=== PATIENT | female | born 1980 | race Caucasian/White ===

== ENCOUNTER 2019-07-27 12:23 | Emergency (ER) | payer MEDICAID ==
[2019-07-27] MEDS ORDERED: Sodium Chloride 0.9% 10 ML Syringe FLUSH PRN (12:50)
--- NOTE | 2019-07-27 12:59 | EDM.PDOC ---
ED HPI GENERAL MEDICAL PROBLEM - General Chief Complaint: Neuro Symptoms/Deficits Stated Complaint: [facility] Time Seen by Provider: 07/27/19 12:34 Source of Information: Reports: Patient, RN Notes Reviewed - History of Present Illness INITIAL COMMENTS - FREE TEXT/NARRATIVE: 39 yr old female has been brought here by [facility] with sx of L facial droop, numbness of her distal R tongue for 1 1/2 days, L facial and LUE, L proximal LLE paresthesias since around midnight early this am about 12 1/2 hrs ago. Last known completely normal last Sunday evening about 40 hours ago. There has been no speech difficulty, no visual difficulty, no focal weakness, clumsiness or difficulty walking. She has had some mild nonspecific dizziness, did not have Cohn initially but today does have mild headache. This was called stroke alert shortly after patient arrival. She has no hx of Htn, diabetes or other known medical problems. She does not take any medications on a regular basis. Left Arm Pain Score (Numeric/FACES): 4 Anterior Head Pain Score (Numeric/FACES): 5 - Related Data Allergies Allergy/AdvReac Type Severity Reaction Status Date / Time blueberry Allergy Other Verified 01/15/18 18:17 antibiotic Allergy Other Uncoded 01/15/18 18:17 maple Allergy Other Uncoded 01/15/18 18:17 Home Meds: Home Meds Acetaminophen/Caffeine [Excedrin Tension Headache Cplt] 1 each PO ASDIRECTED PRN 01/15/18 [History] diphenhydrAMINE [Benadryl] 50 mg PO ASDIRECTED PRN 01/15/18 [History] Cholecalciferol (Vitamin D3) [Vitamin D] 50,000 unit PO WEEKLY 07/27/19 [History ] Magnesium 250 mg PO DAILY 07/27/19 [History] Potassium Gluconate [Potassium] 99 mg PO DAILY 07/27/19 [History] Past Medical History - Past Health History Medical/Surgical History: Denies Medical/Surgical History Social & Family History - Caffeine Use Caffeine Use: Reports: Coffee ED ROS GENERAL - Review of Systems Review Of Systems: See Below Constitutional: Denies: Fever, Chills HEENT: Reports: Other (There has been numbness of the distal R tongue, L facial droop, L eyelid feels heavy) Respiratory: Denies: Shortness of Breath, Cough Cardiovascular: Denies: Chest Pain GI/Abdominal: Denies: Abdominal Pain, Nausea, Vomiting Musculoskeletal: Denies: Neck Pain, Shoulder Pain, Arm Pain, Back Pain Skin: Reports: No Symptoms Neurological: Reports: Dizziness, Headache, Numbness, Tingling. Denies: Trouble Speaking, Difficulty Walking ED EXAM, NEURO - Physical Exam Exam: See Below General Appearance: Alert, No Apparent Distress Eye Exam: Bilateral Eye: PERRL Throat/Mouth: Normal Inspection, Normal Oropharynx Head Exam: Atraumatic. No: Facial Swelling Neck: Supple, Full Range of Motion Respiratory/Chest: No Respiratory Distress, Lungs Clear, Normal Breath Sounds Cardiovascular: Regular Rate, Rhythm GI/Abdominal: Soft, Non-Tender Neurological: Alert, Other (no focal weakness upper extrem, no facial droop at time of exam, good toe strength bilat feet, mild weakness straight leg raising L leg compared to right, mild decreased sensation to touch LUE but also mild decreased sensation to touch reported R hand as well) Back Exam: Normal Inspection Extremities: Normal Inspection, Normal Range of Motion Skin Exam: Warm, Dry, Normal Color, No Rash EKG INTERPRETATION EKG Date: 07/27/19 Rhythm: NSR [place]: Normal P-Wave: Present QRS: Normal ST-T: Normal Course - Vital Signs Last Recorded V/S: Last Vital Signs Temp 98.3 F 07/27/19 12:47 Pulse 86 07/27/19 12:47 Resp 20 07/27/19 12:47 BP 144/89 H 07/27/19 12:47 Pulse Ox 100 07/27/19 12:47 - Orders/Labs/Meds Orders: Active Orders 24 hr Category Date Time Status EKG 12 Lead [EKG Documentation Completion] [RC] STAT Care 07/27/19 12:50 Active Peripheral IV Care [RC] . DIRECTED Care 07/27/19 12:51 Active Sodium Chloride 0.9% [Saline Flush] Med 07/27/19 12:50 Active 10 ml FLUSH ASDIRECTED PRN Peripheral IV Insertion Adult [OM.PC] Stat Oth 07/27/19 12:50 Ordered Medication Orders Sodium Chloride (Saline Flush) 10 ml FLUSH ASDIRECTED PRN PRN Reason: Keep Vein Open Last Admin: 07/27/19 13:28 Dose: 10 ml Labs: Laboratory Tests 07/27/19 07/27/19 07/27/19 Range/Units 12:50 12:50 13:19 WBC 7.64 (3.98-10.04) K/mm3 RBC 4.81 (3.98-5.22) M/mm3 Hgb 14.2 (11.2-15.7) gm/dl Hct 43.8 (34.1-44.9) % MCV 91.1 (79.4-94.8) fl MCH 29.5 (25.6-32.2) pg MCHC 32.4 (32.2-35.5) g/dl RDW Std Deviation 41.4 (36.4-46.3) fL Plt Count 276 (182-369) K/mm3 MPV 9.4 (9.4-12.3) fl Neut % (Auto) 69.7 (34.0-71.1) % Lymph % (Auto) 20.8 (19.3-51.7) % [place] % (Auto) 6.3 (4.7-12.5) % Eos % (Auto) 3.0 (0.7-5.8) Baso % (Auto) 0.1 (0.1-1.2) % Neut # (Auto) 5.32 (1.56-6.13) K/mm3 Lymph # (Auto) 1.59 (1.18-3.74) K/mm3 [place] # (Auto) 0.48 H (0.24-0.36) K/mm3 Eos # (Auto) 0.23 (0.04-0.36) K/mm3 Baso # (Auto) 0.01 (0.01-0.08) K/mm3 Sodium 141 (136-145) mEq/L Potassium 4.1 (3.5-5.1) mEq/L Chloride 103 (98-107) mEq/L Carbon Dioxide 28 (21-32) mEq/L Anion Gap 14.1 (5-15) BUN 13 (7-18) mg/dL Creatinine 0.8 (0.55-1.02) mg/dL Est Cr Clr Drug Dosing 89.26 mL/min Estimated GFR (MDRD) > 60 (>60) mL/min BUN/Creatinine Ratio 16.3 (14-18) Glucose 102 (74-106) mg/dL POC Glucose 95 (70-105) mg/dL Calcium 8.7 (8.5-10.1) mg/dL Total Bilirubin 0.5 (0.2-1.0) mg/dL AST 17 (15-37) U/L ALT 26 (14-59) U/L Alkaline Phosphatase 75 (46-116) U/L Total Protein 7.2 (6.4-8.2) g/dl Albumin 3.6 (3.4-5.0) g/dl Globulin 3.6 gm/dL Albumin/Globulin Ratio 1.0 (1-2) Meds: Medications Generic Name Dose Route Start Last Admin Trade Name Freq PRN Reason Stop Dose Admin Sodium Chloride 10 ml 07/27/19 12:50 07/27/19 13:28 Saline Flush FLUSH 10 ml ASDIRECTED PRN Administration Keep Vein Open - Re-Assessments/Exams Free Text/Narrative Re-Assessment/Exam: 07/27/19 14:[address] is nl, labs came back nl. Patient in no acute distress while here in the ED. She continues to have subjective sensation of mild paresthesias L face , hand, arm and proximal L leg unchanged from arrival. I did get her up to stand, walk which she has done very well. She is showing no balance difficulty, no visible strength difficulty. She feels that her "L leg is heavy" but is not dragging the leg or foot. She did well with heel to toe and can also stand and walk on tiptoes. I do feel it is safe for her to go home at this time. I have written orders for outpatient MRI head, MRA head and neck which is expected to be able to be done tomorrow. Radiology will call her tomorrow AM for appt. Departure - Departure Time of Disposition: 14:21 Disposition: Home, Self-Care 01 Condition: Fair Clinical Impression: Paresthesias in left hand, Arm paresthesia, left, Facial paresthesia, Paresthesia of left leg - Discharge Information Instructions: Paresthesia, [id number] Referrals: Jory De La Paz MD [Primary Care Provider] - Forms: ED Department Discharge Additional Instructions: CT of your head today was normal, labwork today was normal. For further workup and information orders have been written and sent to Radiology for MRI of your head, MRA of your head and neck. The radiology dept. will call you tomorrow morning to give you a time that you can come in and get that done. Return to ED as needed if symptoms worsening in any way. Sepsis Event Note - Evaluation Sepsis Screening Result: No Definite Risk - Focused Exam Vital Signs: Vital Signs Temp Pulse Resp BP Pulse Ox 07/27/19 12:47 98.3 F 86 20 144/89 H 100 Date Exam was Performed: 07/27/19 Time Exam was Performed: 14:46 - My Orders Last 24 Hours: My Active Orders 07/27/19 12:50 EKG 12 Lead [EKG Documentation Completion] [RC] STAT Sodium Chloride 0.9% [Saline Flush] 10 ml FLUSH ASDIRECTED PRN Peripheral IV Insertion Adult [OM.PC] Stat 07/27/19 12:51 Peripheral IV Care [RC] . DIRECTED - Assessment/Plan Last 24 Hours: My Active Orders 07/27/19 12:50 EKG 12 Lead [EKG Documentation Completion] [RC] STAT Sodium Chloride 0.9% [Saline Flush] 10 ml FLUSH ASDIRECTED PRN Peripheral IV Insertion Adult [OM.PC] Stat 07/27/19 12:51 Peripheral IV Care [RC] . DIRECTED
--- NOTE | 2019-07-27 13:33 | CT ---
Head CT Technique: Multiple axial sections through the brain were obtained intravenous contrast not utilized. Comparison: No prior intracranial imaging is available. Findings: Ventricles along with basal cisterns and sulci over the convexities are within normal limits for the patient's age. No abnormal parenchymal densities are seen. No evidence of intracranial hemorrhage. No midline shift or mass-effect is appreciated. Minimal descent of the cerebellar tonsils is noted below the foramen magnum which are felt to be within normal limits. No evidence of intracranial hemorrhage. Bone window settings were reviewed. Visualized mastoid and visualized paranasal sinuses show nothing acute. No acute calvarial finding is seen. Impression: 1. Minimal descent of the cerebellar tonsils below the foramen magnum which are felt to be a normal variant. 2. Nothing acute is appreciated on noncontrast head CT exam. Diagnostic code #2 This report was dictated in MDT
== END 2019-07-27 15:00 | disposition home or self-care (01) ==
LOC: JD.ED 12:23
DX: R20.2 Paresthesia of skin (principal); Z88.1 Allergy status to other antibiotic agents; Z91.018 Allergy to other foods; Z79.899 Other long term (current) drug therapy
CPT/HCPCS: 36415; 70450; 70450-26; 80053; 82962; 85025; 93005; 93010; 99284; 99285-25

== ENCOUNTER 2021-04-08 01:32 | Emergency (ER) | payer BC, MEDICAID ==
[2021-04-08] MEDS ORDERED: Sodium Chloride 0.9% 1,000 ML IV SCH (01:45)
[2021-04-08] MEDS ORDERED: Sodium Chloride 0.9% 10 ML Syringe FLUSH PRN (01:45)
[2021-04-08 02:37] LABS: CORONAVIRUS COVID-19 NAA POSITIVE (NEGATIVE)
== END 2021-04-08 02:55 | disposition home or self-care (01) ==
LOC: JD.ED 01:32
DX: U07.1 COVID-19 (principal); Z88.1 Allergy status to other antibiotic agents; Z91.018 Allergy to other foods
CPT/HCPCS: 0241U; 36415; 71045; 80053; 85025; 86140; 87651; 99284; J7030

== ENCOUNTER 2021-08-31 21:35 | Emergency (ER) | payer BC | END 2021-08-31 23:16 | disposition home or self-care (01) | LOC: JD.ED 21:35 | DX: M79.662 Pain in left lower leg (principal); Z91.018 Allergy to other foods; Z88.1 Allergy status to other antibiotic agents; Z86.16 Personal history of COVID-19 | CPT/HCPCS: 93971-26-LT; 93971-LT; 99283-25 ==

== ENCOUNTER 2022-04-04 09:32 | Emergency (ER) | payer BC ==
[2022-04-04] MEDS ORDERED: diphenhydrAMINE 50 MG Cap PO ONE (09:55)
[2022-04-04] MEDS ORDERED: methylPREDNISolone Sodium Succinate 125 MG/2 ML SDV IM ONE (09:55)
[2022-04-04] MEDS ORDERED: Famotidine 20 MG Tab PO ONE (09:55)
== END 2022-04-04 10:58 | disposition home or self-care (01) ==
LOC: JD.ED 09:32
DX: L50.9 Urticaria, unspecified (principal); T45.0X5A Adverse effect of antiallergic and antiemetic drugs, initial encounter; Z91.018 Allergy to other foods; Z88.7 Allergy status to serum and vaccine; Z79.899 Other long term (current) drug therapy; Z86.16 Personal history of COVID-19
CPT/HCPCS: 96372; 99283; A9270; J2930; Q0163

== ENCOUNTER 2022-06-22 15:06 | Emergency (ER) | payer BC ==
[2022-06-22] MEDS ORDERED: Sodium Chloride 0.9% 10 ML Syringe FLUSH PRN (15:32)
[2022-06-22] MEDS ORDERED: Ketorolac 30 MG/ML SDV IVPUSH ONE (15:34)
[2022-06-22] MEDS ORDERED: Ondansetron 4 MG Tab.DIS PO ONE (15:34)
[2022-06-22] MEDS ORDERED: Meclizine 25 MG Tab PO ONE (15:34)
[2022-06-22] MEDS ORDERED: Ondansetron 4 MG/2 ML SDV ONE (16:20)
[2022-06-22] MEDS ORDERED: Ondansetron 4 MG/2 ML SDV IVPUSH ONE (16:20)
== END 2022-06-22 18:00 | disposition home or self-care (01) ==
LOC: JD.ED 15:06
DX: R42 Dizziness and giddiness (principal); J45.909 Unspecified asthma, uncomplicated; Z86.16 Personal history of COVID-19; Z91.018 Allergy to other foods; Z88.1 Allergy status to other antibiotic agents; Z91.048 Other nonmedicinal substance allergy status
CPT/HCPCS: 36415; 70450; 80053; 84484; 85025; 93005; 96374; 96375; 99284; A9270; J1885; J2405; J3490; 93010

== ENCOUNTER 2023-02-01 16:16 | Emergency (ER) | payer BC, MEDICAID ==
[2023-02-01] MEDS ORDERED: diphenhydrAMINE 50 MG/ML SDV IVPUSH ONE (16:42)
[2023-02-01] MEDS ORDERED: Sodium Chloride 0.9% 10 ML Syringe FLUSH PRN (16:42)
[2023-02-01] MEDS ORDERED: Lactated Ringers 1,000 ML IV SCH (16:45)
[2023-02-01] MEDS ORDERED: Ketorolac 30 MG/ML SDV IVPUSH ONE (16:47)
[2023-02-01 17:12] LABS: BASOPHILS PERCENT AUTO 0.2 % (0.0-1.0); EOSINOPHILS ABSOLUTE AUTO 0.4 K/mm3 (0.0-0.4); EOSINOPHILS PERCENT AUTO 4.5 % (0.0-6.0); HEMATOCRIT 43.1 % (37.0-47.0); HEMOGLOBIN 14.4 gm/dl (12.0-16.0); IMMATURE GRAN ABSOLUTE AUTO 0.03 K/mm3 (0.00-0.05); IMMATURE GRAN PERCENT AUTO 0.4 % (0.0-0.4); LYMPHOCYTES PERCENT AUTO 24.1 % (24.0-44.0); MEAN CORPUSCULAR HEMOGLOBIN 30.1 pg (28.0-32.0); MEAN CORPUSCULAR HGB CONC 33.4 g/dl (32.0-36.0); MEAN PLATELET VOLUME 9.1 fl (9.4-12.3); MONOCYTES ABSOLUTE AUTO 0.5 K/mm3 (0.0-0.8); MONOCYTES PERCENT AUTO 6.1 % (0.0-8.0); NEUTROPHILS ABSOLUTE AUTO 5.4 K/mm3 (1.8-7.7); NEUTROPHILS PERCENT AUTO 64.7 % (41.0-71.0); PLATELET COUNT,PLT 276 K/mm3 (150-400); RED BLOOD CELL COUNT 4.79 M/mm3 (4.10-5.30); WHITE BLOOD CELL COUNT,WBC 8.41 K/mm3 (3.9-11.3)
[2023-02-01 17:42] LABS: ALBUMIN 3.9 g/dl (3.4-5.0); ANION GAP 13.8 (5-15); BILIRUBIN TOTAL 0.4 mg/dL (0.2-1.0); BUN/CREATININE RATIO 8.8 (14-18); CALCIUM 9.3 mg/dL (8.5-10.1); CREATININE 0.8 mg/dL (0.55-1.02); EST CRCL DRUG DOSING (CG) 89.99 mL/min; POTASSIUM,K 3.8 mEq/L (3.5-5.1); PROTEIN TOTAL,TP 7.7 g/dl (6.4-8.2)
[2023-02-01 17:45] LABS: APPEARANCE,URINE CLEAR (Clear); BILIRUBIN,URINE NEGATIVE (Negative); COLOR,URINE YELLOW (Yellow); GLUCOSE,URINE NEGATIVE (Negative); KETONES,URINE NEGATIVE (Negative); LEUKOCYTE ESTERASE,URINE NEGATIVE (Negative); NITRITE,URINE NEGATIVE (Negative); OCCULT BLOOD,URINE NEGATIVE (Negative); PROTEIN,URINE NEGATIVE (Negative); UROBILINOGEN,URINE 0.2 (0.2-1.0)
[2023-02-01] MEDS ORDERED: HYDROmorphone 0.5 MG/0.5 ML Syringe IVPUSH ONE (18:32)
[2023-02-01] MEDS ORDERED: Naloxone 0.4 MG/ML SDV IVPUSH PRN (18:32)
== END 2023-02-01 19:28 | disposition home or self-care (01) ==
LOC: JD.ED 16:16
DX: G43.909 Migraine, unspecified, not intractable, without status migrainosus (principal); Q04.8 Other specified congenital malformations of brain; J45.909 Unspecified asthma, uncomplicated; Z86.16 Personal history of COVID-19; Z79.899 Other long term (current) drug therapy; Z88.1 Allergy status to other antibiotic agents; Z91.018 Allergy to other foods
CPT/HCPCS: 36415; 70450; 80053; 81003; 85025; 96361; 96374; 96375; 99284; J1170; J1200; J1885; J7120